=== PATIENT | male | born 1965 | race Caucasian/White ===

== ENCOUNTER 2020-05-25 08:05 | Day surgery (SDC) | payer BC ==
[2020-05-23 09:23] VITALS: BMI 27.4
[~2020-05-25 08:05] MED LIST: LACTATED RINGERS 1,000 ML IV SCH; LIDOCAINE 1% (10MG/ML) FOR IV START INTRADERMA PRN
[2020-05-25 08:42] VITALS: TEMP 98
[2020-05-25] MEDS ORDERED: PROPOFOL 10 MG/ML 20 ML VIAL IV ONE (09:43)
[2020-05-25] MEDS ORDERED: MIDAZOLAM 2 MG/2 ML VIAL ONE (09:43)
--- NOTE | 2020-05-25 10:01 | P.PCN ---
Date of Procedure: 05/25/20 Procedure(s) Performed: BRIEF HISTORY: Patient is a 54-year-old pleasant white male scheduled for an elective colonoscopy as a part of screening for colorectal neoplasia. PROCEDURE PERFORMED: Colonoscopy. PREOPERATIVE DIAGNOSIS: Screening for colon cancer. IV sedation per Anesthesia. PROCEDURE: After informed consent was obtained, the patient, was brought into the endoscopy unit. IV sedation was administered by Anesthesia under continuous monitoring. Digital rectal examination was normal. Initially the Olympus CF-160 flexible video colonoscope was then inserted in the rectum, gradually advanced into the cecum without any difficulty. Careful examination was performed as the scope was gradually being withdrawn. Ileocecal valve and the appendiceal orifice were visualized and appeared normal. Prep was excellent. Mucosa of the cecum, ascending colon, transverse colon, descending colon, sigmoid colon, and rectum appeared normal. Retroflexion was performed in the rectum and no lesions were seen. The patient tolerated the procedure well. IMPRESSION: Normal-appearing colon from rectum to cecum with no evidence of colorectal neoplasia. RECOMMENDATIONS: Findings of this examination were discussed with the patient as well as his family.. He was advised to have a repeat screening colonoscopy in 10 years
[2020-05-25 10:22] VITALS: BP 111/68; PULSE 50; RESP 18
== END 2020-05-25 10:45 | disposition home or self-care (01) ==
LOC: ORWHC2ENDO 08:05
PROVIDERS: ATTEND Internal Medicine Gastroenterology
DX: Z12.11 Encounter for screening for malignant neoplasm of colon (principal); K58.9 Irritable bowel syndrome, unspecified; N40.0 Benign prostatic hyperplasia without lower urinary tract symptoms; F41.0 Panic disorder [episodic paroxysmal anxiety]; Z88.0 Allergy status to penicillin; Z79.899 Other long term (current) drug therapy; Z98.890 Other specified postprocedural states
CPT/HCPCS: J2250; J2704; G0121

== ENCOUNTER 2020-06-18 13:54 | Emergency (ER) | payer BC ==
[2020-06-18 14:02] VITALS: RESP 18; TEMP 99.5
[2020-06-18] MEDS ORDERED: SODIUM CHLORIDE 0.9% 1,000 ML IV STA (14:31)
[2020-06-18] MEDS ORDERED: MECLIZINE 12.5 MG TAB PO STA (14:41)
--- NOTE | 2020-06-18 15:15 | ED ---
Dizziness HPI - General Chief Complaint: Dizziness Stated Complaint: syncope Time Seen by Provider: 06/18/20 14:16 Source: patient, EMS, RN notes reviewed, old records reviewed Mode of arrival: EMS Limitations: no limitations - History of Present Illness Initial Comments: Patient is a 28 sexual male who presents emergency Department stay with chief complaint of dizziness and lightheaded episode and syncope episode after being seen at his PCPs office for an ear infection. Patient reports he is getting up to leave and a nurse caught him as he is feeling weak and lightheaded. He states he has no chest pain or shortness of breath. - Related Data Home Medications Medication Instructions Recorded Confirmed Citalopram Hydrobromide [CeleXA] 40 mg PO HS 05/23/20 05/25/20 LORazepam [Ativan] 1 mg PO DAILY PRN 05/23/20 05/25/20 Tamsulosin [Flomax] 0.4 mg PO HS 05/23/20 05/25/20 Previous Rx's Medication Instructions Recorded Azithromycin [Zithromax Z-pack] 250 mg PO DIRECTED #6 tab 06/18/20 methylPREDNISolone Dose Pack 4 mg PO DIRECTED #21 package 06/18/20 [Medrol Dose Pack] Allergies Allergy/AdvReac Type Severity Reaction Status Date / Time Penicillins Allergy Unknown Verified 05/25/20 08:25 Childhood Review of Systems ROS Statement: Those systems with pertinent positive or pertinent negative responses have been documented in the HPI. ROS Other: All systems not noted in ROS Statement are negative. Past Medical History Past Medical History: Prostate Disorder Additional Past Medical History / Comment(s): IBS History of Any Multi-Drug Resistant Organisms: None Reported Additional Past Surgical History / Comment(s): COLONOSCOPY/EGD Past Anesthesia/Blood Transfusion Reactions: No Reported Reaction Past Psychological History: Panic Disorder Smoking Status: Former smoker - Past Family History Mother Family Medical History: No Reported History General Exam - General Exam Comments Initial Comments: 54-year-old male. Alert and oriented. No significant distress. Limitations: no limitations General appearance: alert, in no apparent distress Head exam: Present: atraumatic, normocephalic, normal inspection Eye exam: Present: normal appearance, PERRL, EOMI. Absent: scleral icterus, conjunctival injection, periorbital swelling ENT exam: Present: normal exam, mucous membranes moist. Absent: TM's normal bilaterally (Patient has evidence of right otitis media with effusion.) Neck exam: Present: normal inspection. Absent: tenderness, meningismus, lymphadenopathy Respiratory exam: Present: normal lung sounds bilaterally. Absent: respiratory distress, wheezes, rales, rhonchi, stridor Cardiovascular Exam: Present: regular rate, normal rhythm, normal heart sounds. Absent: systolic murmur, diastolic murmur, rubs, gallop, clicks GI/Abdominal exam: Present: soft, normal bowel sounds. Absent: distended, tenderness, guarding, rebound, rigid Extremities exam: Present: normal inspection, full ROM, normal capillary refill. Absent: tenderness, pedal edema, joint swelling, calf tenderness Back exam: Present: normal inspection Neurological exam: Present: alert, oriented X3, CN II-XII intact Psychiatric exam: Present: normal affect, normal mood Course Vital Signs 06/18/20 06/18/20 06/18/20 13:55 14:01 14:30 Temperature 99.5 F Pulse Rate 65 63 Respiratory 18 20 16 Rate Blood Pressure 112/75 112/75 O2 Sat by Pulse 96 Oximetry 06/18/20 06/18/20 06/18/20 15:00 15:30 16:00 Temperature Pulse Rate 64 63 66 Respiratory 16 31 H 14 Rate Blood Pressure 119/75 123/79 127/79 O2 Sat by Pulse Oximetry 06/18/20 06/18/20 16:30 17:52 Temperature 99.5 F Pulse Rate 64 64 Respiratory 18 18 Rate Blood Pressure 106/71 110/75 O2 Sat by Pulse 96 Oximetry EKG Findings - EKG Comments: EKG Findings:: EKG performed at 1419 shows normal sinus rhythm possible left atrial enlargement. Borderline EKG. Jugular rate of 66 bpm. Verbal is 212 ms. QS duration is 86 ms. QT QTc is 380/398 ms. Medical Decision Making - Medical Decision Making 4-year-old male presents with her mother today with a near syncopal episode. He reports he is being seen for an ear infection PCPs office and when he went to drop everything went black and was caught before hitting the ground. Patient denies any chest pain headache or other complaints. He states upon arriving to the ER via EMS he started feeling better. I discussed workup today including EKG and troponin and chest x-ray reviewed and unremarkable. He does have evidence of a right ear infection. He does have a history of penicillin ALLERGY and will be started on azithromycin and Medrol Dosepak for the complaint of ear infection. I advised close PCP follow-up for recheck. I did offer admission for near syncopal episode and Patient states he prefers to go home as he is feeling well this time. - Lab Data Result diagrams: 06/18/20 14:56 06/18/20 14:56 Lab Results 06/18/20 06/18/20 06/18/20 Range/Units 14:56 14:56 14:56 WBC 7.1 (3.8-10.6) k/uL RBC 4.58 (4.30-5.90) m/uL Hgb 13.9 (13.0-17.5) gm/dL Hct 42.4 (39.0-53.0) % MCV 92.6 (80.0-100.0) fL MCH 30.4 (25.0-35.0) pg MCHC 32.9 (31.0-37.0) g/dL RDW 11.6 (11.5-15.5) % Plt Count 178 (150-450) k/uL Neutrophils % 80 % Lymphocytes % 11 % Monocytes % 6 % Eosinophils % 2 % Basophils % 1 % Neutrophils # 5.6 (1.3-7.7) k/uL Lymphocytes # 0.8 L (1.0-4.8) k/uL Monocytes # 0.5 (0-1.0) k/uL Eosinophils # 0.1 (0-0.7) k/uL Basophils # 0.0 (0-0.2) k/uL PT (9.0-12.0) sec INR (<1.2) APTT (22.0-30.0) sec Sodium 137 (137-145) mmol/L Potassium 4.4 (3.5-5.1) mmol/L Chloride 108 H (98-107) mmol/L Carbon Dioxide 25 (22-30) mmol/L Anion Gap 4 mmol/L BUN 13 (9-20) mg/dL Creatinine 0.67 (0.66-1.25) mg/dL Est GFR (CKD-EPI)AfAm >90 (>60 ml/min/1.73 sqM) Est GFR (CKD-EPI)NonAf >90 (>60 ml/min/1.73 sqM) Glucose 101 H (74-99) mg/dL Calcium 8.6 (8.4-10.2) mg/dL Magnesium 1.9 (1.6-2.3) mg/dL Total Bilirubin 0.8 (0.2-1.3) mg/dL AST 28 (17-59) U/L ALT 16 (4-49) U/L Alkaline Phosphatase 69 (38-126) U/L Troponin I <0.012 (0.000-0.034) ng/mL Total Protein 6.6 (6.3-8.2) g/dL Albumin 3.8 (3.5-5.0) g/dL Urine Color Urine Appearance (Clear) Urine pH (5.0-8.0) Ur Specific [place] (1.001-1.035) Urine Protein (Negative) Urine Glucose (UA) (Negative) Urine Ketones (Negative) Urine Blood (Negative) Urine Nitrite (Negative) Urine Bilirubin (Negative) Urine Urobilinogen (<2.0) mg/dL Ur Leukocyte Esterase (Negative) 06/18/20 06/18/20 Range/Units 14:56 14:56 WBC (3.8-10.6) k/uL RBC (4.30-5.90) m/uL Hgb (13.0-17.5) gm/dL Hct (39.0-53.0) % MCV (80.0-100.0) fL MCH (25.0-35.0) pg MCHC (31.0-37.0) g/dL RDW (11.5-15.5) % Plt Count (150-450) k/uL Neutrophils % % Lymphocytes % % Monocytes % % Eosinophils % % Basophils % % Neutrophils # (1.3-7.7) k/uL Lymphocytes # (1.0-4.8) k/uL Monocytes # (0-1.0) k/uL Eosinophils # (0-0.7) k/uL Basophils # (0-0.2) k/uL PT 10.4 (9.0-12.0) sec INR 1.0 (<1.2) APTT 21.8 L (22.0-30.0) sec Sodium (137-145) mmol/L Potassium (3.5-5.1) mmol/L Chloride (98-107) mmol/L Carbon Dioxide (22-30) mmol/L Anion Gap mmol/L BUN (9-20) mg/dL Creatinine (0.66-1.25) mg/dL Est GFR (CKD-EPI)AfAm (>60 ml/min/1.73 sqM) Est GFR (CKD-EPI)NonAf (>60 ml/min/1.73 sqM) Glucose (74-99) mg/dL Calcium (8.4-10.2) mg/dL Magnesium (1.6-2.3) mg/dL Total Bilirubin (0.2-1.3) mg/dL AST (17-59) U/L ALT (4-49) U/L Alkaline Phosphatase (38-126) U/L Troponin I (0.000-0.034) ng/mL Total Protein (6.3-8.2) g/dL Albumin (3.5-5.0) g/dL Urine Color Light Yellow Urine Appearance Clear (Clear) Urine pH 6.0 (5.0-8.0) Ur Specific [place] 1.003 (1.001-1.035) Urine Protein Negative (Negative) Urine Glucose (UA) Negative (Negative) Urine Ketones Negative (Negative) Urine Blood Negative (Negative) Urine Nitrite Negative (Negative) Urine Bilirubin Negative (Negative) Urine Urobilinogen <2.0 (<2.0) mg/dL Ur Leukocyte Esterase Negative (Negative) - Radiology Data Radiology results: report reviewed Chest x-ray is negative for acute cardio pulmonary process. Disposition Clinical Impression: Ear infection, Near syncope Disposition: HOME SELF-CARE Condition: Good Instructions (If sedation given, give patient instructions): Syncope (ED), Ear Infection (ED) Additional Instructions: Please use medication as discussed for ear infection. Rest, drink plenty of fluids. Please follow up with family doctor if symptoms have not improved over the next two days. Please return to the emergency room if your symptoms increase or worsen or for any other concerns. Prescriptions: methylPREDNISolone Dose Pack [Medrol Dose Pack] 4 mg PO DIRECTED #21 package Azithromycin [Zithromax Z-pack] 250 mg PO DIRECTED #6 tab Is patient prescribed a controlled substance at d/c from ED?: No Referrals: Tejinder Hyde MD [Primary Care Provider] - 1-2 days Time of Disposition: 16:54
[2020-06-18 15:43] LABS: Basophils % (A) 1 %; Eosinophils # (A) 0.1 k/uL (0-0.7); Eosinophils % (A) 2 %; HCT 42.4 % (39.0-53.0); HGB 13.9 gm/dL (13.0-17.5); Lymphocytes # (A) 0.8 k/uL (1.0-4.8); Lymphocytes % (A) 11 %; MCH 30.4 pg (25.0-35.0); MCHC 32.9 g/dL (31.0-37.0); MCV 92.6 fL (80.0-100.0); Mean Platelet Volume 7.7; Monocytes # (A) 0.5 k/uL (0-1.0); Monocytes % (A) 6 %; Neutrophils # (A) 5.6 k/uL (1.3-7.7); Neutrophils % (A) 80 %; Platelet Count 178 k/uL (150-450); RBC 4.58 m/uL (4.30-5.90); RDW 11.6 % (11.5-15.5); WBC 7.1 k/uL (3.8-10.6)
[2020-06-18 15:55] LABS: ALT 16 U/L (4-49); AST 28 U/L (17-59); African American GFR (CKD) >90 (>60 ml/min/1.73 sqM); Albumin 3.8 g/dL (3.5-5.0); Alkaline Phosphatase 69 U/L (38-126); Anion Gap 4 mmol/L; Blood Urea Nitrogen 13 mg/dL (9-20); Calcium 8.6 mg/dL (8.4-10.2); Carbon Dioxide 25 mmol/L (22-30); Chloride 108 mmol/L (98-107); Glucose 101 mg/dL (74-99); Magnesium 1.9 mg/dL (1.6-2.3); Non-African American GFR(CKD) >90 (>60 ml/min/1.73 sqM); Sodium 137 mmol/L (137-145); Total Bilirubin 0.8 mg/dL (0.2-1.3); Total Protein 6.6 g/dL (6.3-8.2)
[2020-06-18 16:00] LABS: Potassium 4.4 mmol/L (3.5-5.1)
[2020-06-18 16:09] LABS: Partial Thromboplastin Time 21.8 sec (22.0-30.0); Prothrombin Time 10.4 sec (9.0-12.0)
[2020-06-18 16:39] VITALS: PULSE 64
[2020-06-18] MEDS ORDERED: IBUPROFEN 600 MG TAB PO STA (16:52)
[2020-06-18] MEDS ORDERED: predniSONE 50 MG TAB PO STA (16:52)
[2020-06-18 17:08] LABS: Appearance,Urine Clear (Clear); Bilirubin,Urine Negative (Negative); Blood,Urine Negative (Negative); Color,Urine Light Yellow; Glucose,Urine (UA) Negative (Negative); Ketones,Urine Negative (Negative); Leukocyte Esterase,Urine Negative (Negative); Nitrite,Urine Negative (Negative); Protein,Urine Negative (Negative); Specific Gravity,Urine 1.003 (1.001-1.035); Urobilinogen,Urine <2.0 mg/dL (<2.0)
--- NOTE | 2020-06-18 17:08 | XR ---
EXAMINATION TYPE: XR chest 2V DATE OF EXAM: 06/18/2020 COMPARISON: NONE HISTORY: Dizziness TECHNIQUE: 2 views FINDINGS: Heart and mediastinum are normal. Lungs are clear. Diaphragm is normal. Bony thorax appears normal. There are chest leads. IMPRESSION: Normal chest.
[2020-06-18 17:53] VITALS: BP 110/75
== END 2020-06-18 18:04 | disposition home or self-care (01) ==
LOC: EC 13:54
DX: R55 Syncope and collapse (principal); H66.91 Otitis media, unspecified, right ear; F41.0 Panic disorder [episodic paroxysmal anxiety]; Z79.899 Other long term (current) drug therapy; Z88.0 Allergy status to penicillin; Z87.891 Personal history of nicotine dependence
CPT/HCPCS: 36415; 93005; 80053; 83735; 84484; 85025; 85610; 85730; 81003; 71046; 99285; 96360; J7512

== ENCOUNTER → 2022-04-09 | Outpatient (CLI) | payer BC ==
--- NOTE | 2022-04-09 09:51 | FL ---
EXAMINATION TYPE: FL UGI air w small bowel DATE OF EXAM: 04/09/2022 COMPARISON: NONE HISTORY: R10.33 Periumbilical pain TECHNIQUE: A tear contrast UGI study is performed with small bowel follow through. A total of 60 se conds of fluoroscopic time was utilized during procedure and 18 images obtained. FINDINGS: Clerical Support Specialist image of the abdomen shows no gross abnormality. The esophagus shows normal motility and emptying into the stomach. No evidence of hiatal hernia or s tricture noted. The stomach shows normal distensibility, peristalsis, and mucosal folds. No evidence of any mass or ulcer disease. No significant esophageal reflux was seen during real time performance of this study. The duodenal bulb and sweep are unremarkable. The small bowel study shows normal transit to the colon in less than 30 minutes. There is normal muc osal fold pattern throughout the small bowel. There is no evidence of any stricture or filling defec t noted. The terminal ileum is unremarkable. IMPRESSION: Normal upper GI study and small bowel follow through.
--- NOTE | 2022-04-09 10:38 | US ---
EXAMINATION TYPE: US abdomen complete DATE OF EXAM: 04/09/2022 COMPARISON: NONE CLINICAL HISTORY: R10.33 Periumbilical pain. Generalized Abdominal Pain EXAM MEASUREMENTS: Liver Length: 12.8 cm Gallbladder Wall: 0.2 cm CBD: 0.3 cm Spleen: 10.0 cm Right Kidney: 10.8 x 3.9 x4.9 cm Left Kidney: 10.6 x 5.9 x 5.4 cm Pancreas: Appears wnl Liver: Appears wnl Gallbladder: No stones seen Evidence for sonographic Albert's sign: No CBD: wnl Spleen: Limited vis, obscured by overlying bowel gas Right Kidney: No hydronephrosis or masses seen Left Kidney: No hydronephrosis or masses seen Upper IVC: wnl Abd Aorta: Appears wnl, measures Ao prx 2.4 x 2.6cm, Ao Mid 2.1 x 2.5cm, Ao Dist. 1.9 x 2.3cm, Aorta bif obscured by overlying bowel gas Exam limited by overlying bowel gas. The liver is homogenous. The intrahepatic portion of the IVC and proximal, mid, and distal abdominal aorta are within normal limits. Bifurcation obscured by overlying bowel gas. There is no evidence of cholelithiasis. Common bile duct is unremarkable. The visualized portions of the pancreas are homo genous. The spleen is unremarkable. Kidneys are symmetric and free of hydronephrosis. No renal les ions are seen. IMPRESSION: Slightly suboptimal study without acute findings identified.
== END | disposition home or self-care (01) ==
LOC: RADUSWWP 07:04
PROVIDERS: ATTEND Internal Medicine Gastroenterology
DX: R10.33 Periumbilical pain (principal)
CPT/HCPCS: 74240; 74248; 76700